=== PATIENT | female | born 1980 | race Two or more races ===

== ENCOUNTER → 2017-11-13 | Outpatient (CLI) | payer BC ==
[~2017-11-13] MED LIST: EPIN0.3P15 IM; IBUP800T37 PO
--- NOTE | 2017-11-14 13:48 | RADIOLOGY IMAGING REPORT ---
FACILITY: [facility] PATIENT NAME: LVOE JOSEPH : [id number] MR: [id number] V: [id number] EXAM DATE: [id number] ORDERING PHYSICIAN: JOSE VAUGHN TECHNOLOGIST: Alda Webb PROCEDURE:BILATERAL DIAGNOSTIC DIGITAL MAMMOGRAM WITH CAD ASSISTED INTERPRETATION & 3D TOMOSYNTHESIS COMPARISON:None. INDICATIONS:RT SIDED NIPPLE SCALE X1 YEAR FINDINGS: Moderately dense fibroglandular tissue is seen throughout the breasts. The parenchymal pattern has remained stable allowing for difference in mammographic technique & patient positioning. There is no evidence of malignant appearing mass, malignant appearing calcifications or other secondary sign of malignancy in either breast. DIAGNOSTIC CATEGORY 2--BENIGN FINDING. RECOMMENDATIONS: CLINICAL EVALUATION. IMPRESSION: BIRADS 2: Benign finding No significant abnormality is seen clinical follow-up recommended for patient's clinical findings. Dictated by: Sharri Garcia M.D. on 11/13/2017 at 16:21 Transcribed by: CLARK on 11/14/2017 at 9:07 Approved by: Sharri Garcia M.D. on 11/14/2017 at 13:47 [facility]
--- NOTE | 2017-11-14 13:49 | RADIOLOGY IMAGING REPORT ---
FACILITY: [facility] PATIENT NAME: LOVE JOSEPH : [id number] MR: [id number] V: [id number] EXAM DATE: [id number] ORDERING PHYSICIAN: JOSE VAUGHN TECHNOLOGIST: Manisha Flores PROCEDURE:US RIGHT BREAST COMPLETE COMPARISON:None. INDICATIONS:RT SIDED NIPPLE SCALE X1 YEAR FINDINGS: Multiple retroareolar images were obtained about the Right breast revealing no sonographic abnormality. Therefore clinical follow-up recommended for patient's clinical findings. DIAGNOSTIC CATEGORY 2--BENIGN FINDING. RECOMMENDATIONS: CLINICAL EVALUATION. IMPRESSION: BIRADS 2: Benign finding Clinical follow-up recommend for patient's clinical findings as no sonographic or mammographic correlate was identified. Dictated by: Sharri Garcia M.D. on 11/13/2017 at 16:23 Transcribed by: CLARK on 11/14/2017 at 13:05 Approved by: Sharri Garcia M.D. on 11/14/2017 at 13:47 [facility]
== END ==
LOC: MAMO 01:25
PROVIDERS: ATTEND Nurse Practitioner
DX: N64.59 Other signs and symptoms in breast (principal)
CPT/HCPCS: 77066

== ENCOUNTER → 2017-11-20 | Outpatient (REF) | payer BC | LOC: ZZSENDIN 12:00 | PROVIDERS: ATTEND Surgery | DX: L98.9 Disorder of the skin and subcutaneous tissue, unspecified (principal) | CPT/HCPCS: 88305 ==

== ENCOUNTER → 2018-01-24 | Outpatient (CLI) | payer BC ==
[~2018-01-24] MED LIST changes: +IOPAMIDOL 76% 75 ML INFUS BTL 75 ML ONE
--- NOTE | 2018-01-24 09:18 | RADIOLOGY IMAGING REPORT ---
FACILITY: [facility] PATIENT NAME: Madie Barron : 1980 MR: [id number] V: [id number] EXAM DATE: ORDERING PHYSICIAN: JUSTICE WILLSON TECHNOLOGIST: [place] [facility] [place] : 1980 Visit/Account:[id number] Date of Sevice: 01/24/2018 ABDOMEN/PELVIS W/WO CONTRAST HISTORY: Left lower quadrant pain and hematuria TECHNIQUE: Axial images acquired through the abdomen/pelvis both with and without IV contrast.. Kt nal and sagittal reformatting also performed. Dose Lowering Technique One of the following dose optimization techniques was utilized in the performance of this exam: Autom ated exposure control; adjustment of the mA and/or kV according to the patient's size; or use of an i terative reconstruction technique. Specific details can be referenced in the facility's radiology C T exam operational policy. CONTRAST: 75 mL Isovue-370 COMPARISON: None. FINDINGS: Visualized lung bases: Negative. Hepatobiliary: Small calcified granuloma anterior aspect left lobe of the liver Spleen: Negative. Adrenals: Negative. Pancreas: Negative. Kidneys ureters and bladder: Negative. Genitalia: Negative. GI: There is no evidence of bowel obstruction or bowel wall thickening. The appendix is visualized and does not appear inflamed Vessels/spaces/nodes: Negative. Bones/soft tissues: There is a small umbilical hernia containing fat. Sclerotic densities in the sa kalia and left iliac bone may represent bone islands. Clinical correlation needed Additional findings: None pertinent. IMPRESSION: No demonstration of urolithiasis, hydronephrosis or hydroureter. No evidence of bowel obstruction or bowel wall thickening. The appendix is visualized does not appea r inflamed Small focal hernia containing fat Sclerotic densities in the sacrum and left iliac bone may simply represent bone islands. If the brodie ent is symptomatic, bone scan may be helpful Report Dictated By: Sharri Garcia MD at 01/24/2018 8:44 AM Report E-Signed By: Sharri Garcia MD at 01/24/2018 9:12 AM WSN:OWEN
== END ==
LOC: CT 01:48
PROVIDERS: ATTEND Obstetrics & Gynecology
DX: K42.9 Umbilical hernia without obstruction or gangrene (principal)
CPT/HCPCS: 74178; Q9967